=== PATIENT | female | born 1960 | race Caucasian/White ===

== ENCOUNTER 2016-10-25 16:04 | Emergency (ER) | payer OTHER ==
[~2016-10-25] VITALS: Ht 162.6 cm; Wt 66.7 kg
[2016-10-25 17:27] VITALS: BP 172/77
[2016-10-25] MEDS: EPINEPHrine HCL 1 MG/1 ML AMP SC ONE (17:59)
[2016-10-25] MEDS: methylPREDNISolone SOD SUCC 125 MG/2 ML VL IM ONE (17:59)
== END 2016-10-25 18:33 | disposition home or self-care (01) ==
LOC: ER 16:15
DX: T78.40XA Allergy, unspecified, initial encounter (principal); E07.89 Other specified disorders of thyroid
CPT/HCPCS: 96372; 99284; J0171; J2930